=== PATIENT | female | born 1980 ===

== ENCOUNTER 2023-11-30 13:14 | Inpatient (IN) | payer SELFPAY ==
[~2023-11-30] VITALS: Ht 160 cm; Wt 55.2 kg
[2023-11-30 16:41] VITALS: BP 97/66; PULSE 82; TEMP 97.7
[2023-11-30] MEDS ORDERED: KLONOPIN WAFERS1 MG PO (16:51)
[2023-11-30] MEDS ORDERED: EFFEXOR-XR150 MG PO (16:52)
[2023-11-30] MEDS ORDERED: DESYREL 50MG50 MG PO (16:57)
--- NOTE | 2023-11-30 17:15 | NUR ---
PATIENT ADMITTED TO MEDICAL UNIT AT THIS TIME. ADMISSION INTAKE AND ASSESSMENT COMPLETED. PATIENT ORIENTED TO ROOM. MED REC UPDATED. PATIENT IS VERY DROWSY AND IS HAVING A DIFFICULT TIME KEEPING HER BALANCE. SEIZURE PRECAUTIONS IN PLACE. BED ALARM ON AND CALL LIGHT WITHIN REACH. PATIENT IS REQUESTING PAIN MEDICATIONS AT THIS TIME, THIS RN INFORMED PATIENT WE WILL HOLD OFF ON PAIN MEDICATIONS SINCE SHE'S SO DROWSY ALREADY. PATIENT DOES REPORT ATTEMPTED SUICIDE ABOUT A WEEK AGO. SHE DID SPEAK WITH SOMEONE AFTER THE EVENT AND HAS NO SUICIDAL IDEATIONS AT THIS TIME. DR. JARRETT WAS NOTIFIED AND STATED WE DO NOT NEED TO PLACE HER ON PRECAUTIONS FOR THIS.
[2023-11-30] MEDS ORDERED: levETIRAcetam 500 MG TAB PO SCH (17:20)
[2023-11-30] MEDS ORDERED: Nicotine 21 MG DAILY PATCH TD SCH (17:22)
[2023-11-30 17:27] VITALS: BP_SYST 97
[2023-11-30] MEDS ORDERED: Acetaminophen 500 MG TAB PO PRN (17:30)
[2023-11-30] MEDS ORDERED: Ondansetron 4 MG/2 ML VIAL IV PRN (17:30)
[2023-11-30] MEDS ORDERED: NS 1,000 ML IV SCH (17:30)
--- NOTE | 2023-11-30 17:55 | NUR ---
THE PATIENT WAS MOVED TO THE SURGICAL UNIT AT THIS TIME. PATIENT TAKEN TO ROOM 322 AND ALL PERSONAL BELONGINGS WENT WITH HER. WILL PASS ALONG REPORT TO THE ONCOMING DIAGRAMMER AND SEAMER NURSE.
[2023-11-30 20:03] VITALS: BP 90/60; PULSE 86; TEMP 98.5
[2023-11-30 20:50] VITALS: BP_SYST 90
[2023-11-30] MEDS ORDERED: traZODone 50 MG TAB PO SCH (21:00)
--- NOTE | 2023-11-30 21:28 | NUR ---
Pt drowsing in bed, awakened for HS med. Refuses SCD's at this time. Has IVF to lt hand infusing without problem. Sz pads on. Is alert and oriented x4.
[2023-11-30 23:41] VITALS: BP 147/90; BP 90/58; PULSE 75; PULSE 99; TEMP 98.2
--- NOTE | 2023-11-30 23:54 | NUR ---
Pt asking for muscle relaxant, given ES Tylenol at this time. Assisted to bathroom with one assist, unable to void, back to bed. Did urinate at shift change tonight.
[2023-12-01] VITALS (11 sets, daily range): BP systolic 90–112; BP diastolic 61–80; PULSE 89–95; TEMP 98–98.6
--- NOTE | 2023-12-01 03:00 | NUR ---
PT AWAKE, DENIES NEEDS.
--- NOTE | 2023-12-01 06:04 | NUR ---
NO SEIZURE ACTIVITY NOTED THIS SHIFT.
--- NOTE | 2023-12-01 08:20 | NUR ---
Pt laying in bed. Sleepy. A&Ox4. S1S2. Clear lungs. ABD is flat, soft, non-tender. Palpable pulses in all extremities. Pt sat up in bed quickly and felt dizzy/lightheaded. Resolved after a minute. 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 Pt has Telehelath consult with Dr Samaniego for today. Explained to Pt we do not have a Neurologist at the hospital but the Neurologist is consulted and will be talking wtih the Pt over a video call. Pt has call light in reach, seizure precautions in place and bed alarm on. Pt refused SCDs.
[2023-12-01] MEDS ORDERED: Multivitamin TAB PO SCH (09:00)
[2023-12-01] MEDS ORDERED: clonazePAM 1 MG TAB PO SCH (09:00)
[2023-12-01 10:30] LABS: BASO % 0.5 % (0.0-2.0); EOS % 0.7 % (0.0-4.0); GRAN # 3.7 K/mm3 (1.4-6.5); GRAN % 66.8 % (42.2-75.2); HEMOGLOBIN 10.6 g/dl (12.5-16.0); LYMPH # 1.3 K/mm3 (1.2-3.4); LYMPH % 23.1 % (20.0-51.0); MEAN CELL VOLUME 92 fl (80.0-100.0); MEAN CORPUSCULAR HEMOGLOBIN 31 pg (27-31); MEAN CORPUSCULAR HGB CONC 34 g/dl (33.0-37.0); MEAN PLATELET VOLUME 9.6 fl (7.4-10.4); MONO # 0.5 K/mm3 (0.1-0.6); MONO % 8.5 % (1.7-9.3); PLATELET COUNT 240 K/mm3 (130-400); RED BLOOD COUNT 3.39 M/mm3 (4.10-5.30); REDCELL DISTRIBUTION WIDTH-CV 11.9 % (11.5-14.5)
[2023-12-01 10:43] LABS: HEMATOCRIT 31.2 % (37.0-47.0)
[2023-12-01 11:00] LABS: CALCIUM 7.9 mg/dL (8.4-10.2); CREATININE, serum 0.65 mg/dL (0.57-1.11); POTASSIUM 3.4 mEq/L (3.5-4.5)
--- NOTE | 2023-12-01 11:47 | NUR ---
Pt reporting throbbing headache, rating 7/10, does not want pain meds. Pt reporting muscle cramping/soreness all over body, rating 7/10, does not want meds. Offered warm blanket - Pt agreeable. Pt asked about Neurologist consult. Explained Neurologist will see Pt via telehealth, do not have an exact time. Pt wondering about a muscle relaxer to help with soreness. Notified CHRISTINA Trinidad. PA will discuss with Dr Walker.
[2023-12-01] MEDS ORDERED: *Potassium Replacement Protocol MC SCH (12:00)
[2023-12-01 12:17] LABS: MAGNESIUM 1.9 mg/dL (1.6-2.6)
[2023-12-01] MEDS ORDERED: Potassium Bicarbonate/Citrate 20 MEQ Effervescent TAB PO SCH (12:30)
--- NOTE | 2023-12-01 12:39 | NUR ---
Pt laying in bed, started K replacement protocol. Pt was wondering about muscle relaxer. Discussed provider was notified, but with the Pt's BP being low, we may not be able to do a muscle relaxer at this time. Pt understood. No further needs at this time.
--- NOTE | 2023-12-01 12:48 | NUR ---
Winchman/Crane Operator attempted twice to complete initial intake and discuss discharge planning. SW attempted shortly after rounds and patient stirred when SW spoke, but would not open her eyes or respond to SW despite multiple attempts. SW returned later with the same lack of response. SW asked patient, "are you really asleep or do you not want to talk with me?". Patient stated, "what do you want to talk about?". SW advised she was there to assist with discharge planning. Patient was again silent. SW asked if she could come back later to talk and patient would not respond.
--- NOTE | 2023-12-01 13:01 | NUR ---
Pt's mother (Sadi) called for an update. Pt approved sharing information with mother. Discussed Pt plan of care. Pt's mother would like to talk to Dr Walker regarding plan. Specific questions about seizure meds and concerns with her daughter being a drug user. Sadi's number is [phone].
--- NOTE | 2023-12-01 14:20 | NUR ---
Pt laying in bed. Entered room to administer #2/3 Potassium Replacements. Pt requested to get up to bathroom. Pt very woblly when on feet and dependent on assist for stability. Gave Pt a walker and she did much better. Pt ambulated back to bed and reported feeling dizzy. Once laying in beddizziness resolved.
--- NOTE | 2023-12-01 15:48 | NUR ---
gas utility worker met with pt to complete intake information. Pt reports she is technically homeless and is admitted at an inpatient alcohol/drug program in [place], [place]. She did not know the name but provided the contact: [phone] Kiara, Director. Pt states she does not have a current PCP, but was going to [facility]. She states she has difficulty affording medications and does not get it from [facility] in [place], [place] anymore. She reports this to be out of the way and would like it sent to whoever the facility uses in [place]. Pt does not have insurance. She reports her contact, Thiago Hunter as a friend and is who will transport her tomorrow. Pt stated her mother, Josie Sal [phone] is another contact. Pt does not have a DPOA-HC and was provided a copy. She has a 23 year old daughter. She does not want her to be the sole decision-maker as she wants her to collaborate with her mother. SW provided further information on DPOA and legal NOK status. Pt reports she has difficulty affording medications as her boyfriend who recently passed used to help. She states she can afford it right now once discharged. Pt states she will go back to [place], then go to a Reintegration Program in [place] after her [facility] program; then can obtain a job. Baltazar states she sees a Therapist at [facility] in [place], [place] and they are who initially prescribed her meds. Pt states she has no family resources as she is "extracted" from them. Pt was agreeable to AMBROCIO calling the inpatient treatment program to coordinate information. Pt requested a shirt and bra. SW Student Reyna provided these. AMBROCIO called [facility] the [address] in [place], [place] and spoke with the compound machine operator. They confirmed pt is set to return there. They advised pt can have medications sent to [facility] and they can pick it up; but patient will have to pay. They know pt has no insurance. AMBROCIO spoke with [facility] who provided their fax for scripts as: [phone]. He reports the pharmacy could also be listed [facility]. AMBROCIO informed ANSELMO Lemus of the above pharmacy need. SW informed CHRISTINA Aleman as well to send scripts. SW informed Economics Lecturer, Maria T of self pay status. Discharge Plan: return to [facility] [place] [facility] program with friend as ride
--- NOTE | 2023-12-01 15:55 | NUR ---
Pt reports coldsore on lower R lip. Pt reports "they get bad when I get them." Pt requesting Valtrex for coldsore. Called CHRISTINA Aleman.
[2023-12-01] MEDS ORDERED: DOCOSANOL 10% TP SCH (17:00)
--- NOTE | 2023-12-01 17:25 | NUR ---
Pt ambulated to bathroom with walker. Very unsteady gait and heavily dependent on walker. Administered meds as per EMAR.
--- NOTE | 2023-12-01 20:43 | NUR ---
PT IN BED, GIVEN HS MEDS INCLUDING ABREVA FOR RT LOWER LIP LESION. HAS IVF TO LT HAND INFUSING WITHOUT PROBLEM. PT REPORTS OCCASIONAL DIZZINESS IN BED. UP WITH SUPERVISION ONLY. SZ PADS ON.
[2023-12-01 23:17] LABS: HIV 1/2 Antibodies Non-Reactive; HIV-1p24 Antigen Non-Reactive
[2023-12-02] VITALS (8 sets, daily range): BP systolic 94–98; BP diastolic 61–65; PULSE 80–94; TEMP 97.7–98.6
--- NOTE | 2023-12-02 00:30 | NUR ---
PT AWAKE, NO CONCERNS. SNACK PROVIDED.
--- NOTE | 2023-12-02 04:00 | NUR ---
PT UP TO BATHROOM WITH MORE STEADY GAIT. VOIDS AND BACK TO BED.
[2023-12-02 06:25] LABS: BASO # 0.1 K/mm3 (0.0-0.2); BASO % 0.8 % (0.0-2.0); EOS # 0.1 K/mm3 (0.0-0.7); EOS % 1.1 % (0.0-4.0); GRAN # 3.8 K/mm3 (1.4-6.5); GRAN % 57.5 % (42.2-75.2); HEMOGLOBIN 10.4 g/dl (12.5-16.0); LYMPH # 2.2 K/mm3 (1.2-3.4); LYMPH % 32.5 % (20.0-51.0); MEAN CELL VOLUME 92 fl (80.0-100.0); MEAN CORPUSCULAR HEMOGLOBIN 31 pg (27-31); MEAN CORPUSCULAR HGB CONC 34 g/dl (33.0-37.0); MEAN PLATELET VOLUME 9.6 fl (7.4-10.4); MONO # 0.5 K/mm3 (0.1-0.6); MONO % 7.6 % (1.7-9.3); PLATELET COUNT 228 K/mm3 (130-400); RED BLOOD COUNT 3.31 M/mm3 (4.10-5.30)
[2023-12-02 06:29] LABS: HEMATOCRIT 30.6 % (37.0-47.0)
[2023-12-02 06:47] LABS: ANION GAP 4 mmol/L (7-16); CALCIUM 8.1 mg/dL (8.4-10.2); CHLORIDE 116 mEq/L (98-107); CREATININE, serum 0.63 mg/dL (0.57-1.11); GLUCOSE 93 mg/dL (70-99); MAGNESIUM 1.9 mg/dL (1.6-2.6); POTASSIUM 3.9 mEq/L (3.5-4.5); SODIUM 141 mEq/L (136-145)
[2023-12-02 06:48] LABS: BLOOD UREA NITROGEN < 5 mg/dL (7-19)
[2023-12-02] MEDS ORDERED: Potassium Bicarbonate/Citrate 20 MEQ Effervescent TAB PO ONE (07:15)
--- NOTE | 2023-12-02 07:40 | NUR ---
Pt laying in bed. A&Ox4. VSS. S1S2. Clear lungs. ABD is flat, soft, non-tender. Palpable pulses in all extremities. IV is patent in L hand with NS at 100. Discussed plan of care with Pt - MRI. Pt has call light in reach and bed alarm on.
--- NOTE | 2023-12-02 08:50 | NUR ---
Pt off floor for MRI. Transported via .
[2023-12-02] MEDS ORDERED: lamoTRIgine 25 MG TAB PO SCH (09:00)
[2023-12-02] MEDS ORDERED: Gadoterate 15 ML VIAL IV ONE (09:00)
--- NOTE | 2023-12-02 09:50 | NUR ---
Pt returned from MRI. Laying in bed. Call light in reach and bed alarm on. Administered AM meds as per EMAR.
[2023-12-02] MEDS ORDERED: KLONOPIN 1MG1 MG PO (11:44)
[2023-12-02] MEDS ORDERED: LAMICTAL 25MG T25 MG PO (11:49)
--- NOTE | 2023-12-02 12:00 | NUR ---
Discussed D/C with patient. Pt calling friend who lives in [place] to arrange transport to [place], [place].
--- NOTE | 2023-12-02 13:51 | NUR ---
Pt starting to get a second coldsore on center of bottom lip. Pt requested Valtrex for it. Pt reports it is a pill she takes as these coldsores start to form on her lips after seizures.
--- NOTE | 2023-12-02 15:16 | NUR ---
Educated Pt on D/C information and instructions. Answered Pt questions. Waiting for Pt's friend to come and curing pickling packer Pt.
--- NOTE | 2023-12-02 15:33 | NUR ---
Pt's ride is here. D/C Pt's IV. Placed pressure bandage. Pt dressed and transported to car via .
== END 2023-12-02 15:35 | DRG 101 ==
LOC: MEDICAL 13:14 → SURG 17:50
PROVIDERS: Physician Assistant; ADMIT Internal Medicine
DX: G40.901 Epilepsy, unspecified, not intractable, with status epilepticus (principal); G93.40 Encephalopathy, unspecified; G47.00 Insomnia, unspecified; F41.9 Anxiety disorder, unspecified; H02.402 Unspecified ptosis of left eyelid; F15.10 Other stimulant abuse, uncomplicated; Z79.899 Other long term (current) drug therapy; Z72.0 Tobacco use
CPT/HCPCS: A9575; J7030; Q3014